=== PATIENT | female | born 1985 | race Caucasian/White ===

== ENCOUNTER 2018-11-20 23:35 | Emergency (ER) | payer SELFPAY ==
[~2018-11-20] VITALS: Ht 152.4 cm; Wt 56.7 kg
[2018-11-21] VITALS: BP_SYST 144
--- NOTE | 2018-11-21 | NUR ---
Patient to ER bed 3 for evaluation.
--- NOTE | 2018-11-21 00:02 | NUR ---
ER at bedside examining patient.
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
[2018-11-21] MEDS ORDERED: KETOROLAC TROMETHAMINE 60 MG/2 ML VIAL IM ONE (00:15)
--- NOTE | 2018-11-21 01:00 | NUR ---
Patient resting quietly in no acute distress, awaiting dispo. Friend remains at bedside.
[2018-11-21 01:15] VITALS: BP_SYST 130
--- NOTE | 2018-11-21 01:15 | NUR ---
Patient given written and verbal discharge instructions and verbalizes understanding. ER MD discussed with patient the results and treatment provided. Patient in stable condition. ID arm band removed. Rx of Motrin, Robaxin, Tramadol given. Patient educated on pain management and to follow up with PMD. Pain Scale 0. Opportunity for questions provided and answered. Medication side effect fact sheet provided. Patient left ER in no acute distress, able to ambulate without difficulty with slow, steady gait with friend at her side. No adverse reaction noted to medication.
== END 2018-11-21 01:15 | disposition home or self-care (01) ==
LOC: SED 23:35
DX: S16.1XXA Strain of muscle, fascia and tendon at neck level, initial encounter (principal); R03.0 Elevated blood-pressure reading, without diagnosis of hypertension; V89.2XXA Person injured in unspecified motor-vehicle accident, traffic, initial encounter; Y93.89 Activity, other specified; Y92.410 Unspecified street and highway as the place of occurrence of the external cause; Y99.8 Other external cause status
CPT/HCPCS: 72040; 96372; 99283; J1885

== ENCOUNTER 2019-06-18 21:38 | Emergency (ER) | payer MEDICAID ==
[~2019-06-18] VITALS: Ht 152.4 cm; Wt 58.1 kg
[2019-06-18 21:51] VITALS: BP_SYST 117
--- NOTE | 2019-06-18 21:58 | NUR ---
Patient triaged and placed in waiting room. VSS and patient appears in no acute distress at this time. Accompanied by daughter, awaiting available bed, and MD notified of need for MSE.
[2019-06-18 22:29] LABS: BILIRUBIN,URINE NEGATIVE (NEGATIVE); BLOOD, URINE 2+ (NEGATIVE); CLARITY/URINE CLEAR (CLEAR); COLOR,URINE YELLOW (YELLOW); GLUCOSE,URINE NEGATIVE (NEGATIVE); KETONES,URINE NEGATIVE (NEGATIVE); LEUKOCYTE ESTERASE ,URINE 1+ (NEGATIVE); NITRITE, URINE NEGATIVE (NEGATIVE); PH,URINE 6.5 (5.0-8.0); PROTEIN URINE NEGATIVE (NEGATIVE); UROBILINOGEN,URINE 0.2 (0.2-1.0)
[2019-06-18 22:39] LABS: BACTERIA,URINE FEW /HPF (None Seen)
--- NOTE | 2019-06-18 23:00 | NUR ---
Patient to ER bed 8 to gown for evaluation. Side rails up.
--- NOTE | 2019-06-18 23:15 | NUR ---
DAWN Noble at bedside examining patient.
[2019-06-18] MEDS ORDERED: CIPROFLOXACIN HCL 500 MG TABLET PO ONE (23:30)
--- NOTE | 2019-06-18 23:30 | NUR ---
Note undone in EDM - 06/19/19 at 0139 by [email or web address] Pt came to the ED for R flank pain with dysuria, urinary frequency and urgency. Reports symptoms are mild. HX of prior kidney infections which feel similiar to what pt is feeling now. Denies n/v/d or fever. No other complaints/injuries noted. Will cont. to monitor.
[2019-06-18 23:45] VITALS: BP_SYST 117
--- NOTE | 2019-06-18 23:45 | NUR ---
Patient given written and verbal discharge instructions and verbalizes understanding. ER MD Dr. Santana discussed with patient the results and treatment provided. Patient in stable condition. ID arm band removed. Rx of cipro given. Patient educated on pain management and to follow up with PMD. Pain Scale 0/10. Opportunity for questions provided and answered. Medication side effect fact sheet provided.
== END 2019-06-18 23:45 | disposition home or self-care (01) ==
LOC: SED 21:38
DX: N39.0 Urinary tract infection, site not specified (principal)
CPT/HCPCS: 81000-TC; 81025; 87086; 99283

== ENCOUNTER 2020-05-20 18:59 | Emergency (ER) | payer SELFPAY ==
[~2020-05-20] VITALS: Ht 152.4 cm; Wt 59.0 kg
[2020-05-20 19:04] VITALS: BP_SYST 152
[2020-05-20 20:02] LABS: BILIRUBIN,URINE NEGATIVE (NEGATIVE); BLOOD, URINE 2+ (NEGATIVE); CLARITY/URINE HAZY (CLEAR); COLOR,URINE YELLOW (YELLOW); GLUCOSE,URINE NEGATIVE (NEGATIVE); KETONES,URINE NEGATIVE (NEGATIVE); LEUKOCYTE ESTERASE ,URINE NEGATIVE (NEGATIVE); NITRITE, URINE NEGATIVE (NEGATIVE); PROTEIN URINE NEGATIVE (NEGATIVE); UROBILINOGEN,URINE 0.2 (0.2-1.0)
[2020-05-20 20:18] LABS: BACTERIA,URINE FEW /HPF (None Seen); MUCUS,URINE None Seen /LPF (None Seen)
[2020-05-20 20:19] LABS: URINE AMORPHOUS URATE 3+ /HPF (None Seen)
[2020-05-20] MEDS ORDERED: KETOROLAC TROMETHAMINE 60 MG/2 ML VIAL IM ONE (20:30)
[2020-05-20 21:56] VITALS: BP_SYST 127
== END 2020-05-20 21:56 | disposition home or self-care (01) ==
LOC: SED 18:59
DX: M54.5 Low back pain (principal)
CPT/HCPCS: 81000-TC; 81025; 96372; 99283; J1885